=== PATIENT | male | born 1990 | race Two or more races ===

== ENCOUNTER 2019-03-27 23:25 | Emergency (ER) | payer MEDICAID ==
[~2019-03-27] VITALS: Ht 175.3 cm; Wt 63.5 kg
[~2019-03-27 23:25] MED LIST: ACYCLOVIR400 MG ORAL; ACYCLOVIR400 MG PO; NKM; POLYTRIM OP SOL10 ML OPHTHALM
[2019-03-27 23:40] VITALS: BP 132/86
--- NOTE | 2019-03-27 23:40 | NUR ---
ER Nurse Note: Pt BIBA from home d/t AMS after using meth. Per EMS, pt's brother called because pt was combative and acting out. Pt skin intact, no signs of trauma. Pt yelling and spitting at officers. Pt is not cooperating. ERMD at pt side; will continue to montior.
[2019-03-28] MEDS ORDERED: LORazepam Inj 2mg/ml 1ml IV ONE
[2019-03-28] MEDS ORDERED: Haloperidol 5mg/ml Inj IM ONE
[2019-03-28 00:48] LABS: BASOPHILS % (AUTO) 1.1 % (0.0-2.0); EOSINOPHILS % (AUTO) 0.3 % (0.0-3.0); HEMATOCRIT 44.1 % (42.0-52.0); HEMOGLOBIN 15.8 G/DL (14.2-18.0); LYMPHOCYTES % (AUTO) 9.7 % (20.0-45.0); MEAN CORPUSCULAR VOLUME 87 FL (80-99); MONOCYTES % (AUTO) 8.6 % (1.0-10.0); NEUTROPHILS % (AUTO) 80.4 % (45.0-75.0); PLATELET COUNT 285 K/UL (150-450); RED BLOOD COUNT 5.09 M/UL (4.70-6.10); RED CELL DISTRIBUTION WIDTH 10.8 % (11.6-14.8); WHITE BLOOD COUNT 14.1 K/UL (4.8-10.8)
[2019-03-28 00:59] LABS: ANION GAP 6 mmol/L (5-15); BLOOD UREA NITROGEN 15 mg/dL (7-18); CALCIUM 9.2 MG/DL (8.5-10.1); CARBON DIOXIDE 28 MMOL/L (21-32); CHLORIDE 103 MMOL/L (98-107); CREATININE 0.9 MG/DL (0.55-1.30); POTASSIUM 3.8 MMOL/L (3.5-5.1); SODIUM 137 MMOL/L (136-145)
[2019-03-28 01:03] LABS: ALANINE AMINOTRANSFERASE 21 U/L (12-78); ALBUMIN 4.5 G/DL (3.4-5.0); ALBUMIN/GLOBULIN RATIO 1.5 (1.0-2.7); ALKALINE PHOSPHATASE 72 U/L (46-116); ASPARTATE AMINO TRANSFERASE 26 U/L (15-37); BILIRUBIN,TOTAL 0.6 MG/DL (0.2-1.0)
--- NOTE | 2019-03-28 01:54 | Emergency Room Report ---
History of Present Illness General Chief Complaint: Substance Abuse Source: Patient, EMS, Law Enforcement Present Illness HPI Is a 29-year-old male with a history of methamphetamine abuse. He presents with chief complaint of altered mental status. Brother called 911 because patient was combative and acting abnormal. This is acute onset. Initially denies any drug abuse but later on told me that he used methamphetamine today. Patient was not cooperative. He was yelling and combative. No trauma. No suicidal thoughts or homicidal thought. Allergies: Coded Allergies: No Known Allergies (Unverified , 08/09/13) Patient History Past Medical History: see triage record, old chart reviewed Past Surgical History: none Pertinent Family History: none Social History: Reports: smoking, drug use Immunizations: other Reviewed Nursing Documentation: PMH: Agreed; PSxH: Agreed Nursing Documentation-PMH Past Medical History: No History, Except For Review of Systems Eye: Denies: eye pain, blurred vision ENT: Denies: ear pain, nose congestion, throat swelling Respiratory: Denies: cough, shortness of breath Cardiovascular: Denies: chest pain, palpitations Gastrointestinal: Denies: abdominal pain, diarrhea, nausea, vomiting Musculoskeletal: Denies: back pain, joint pain Skin: Denies: rash Neurological: Denies: headache, numbness Endocrine: Denies: increased thirst, increased urine Hematologic/Lymphatic: Denies: easy bruising All Other Systems: negative except mentioned in HPI Physical Exam Vital Signs Date Time Temp Pulse Resp B/P (MAP) Pulse Ox O2 Delivery O2 Flow Rate FiO2 03/27/19 23:26 98.4 110 18 99 Room Air vitals with tachycardia Sp02 EP Interpretation: reviewed, normal General Appearance: well appearing, no apparent distress, alert, other - Patient is aggressive and combative. Head: normocephalic, atraumatic Eyes: bilateral eye PERRL, bilateral eye EOMI ENT: hearing grossly normal, normal pharynx Neck: full range of motion, supple, no meningismus Respiratory: chest non-tender, lungs clear, normal breath sounds Cardiovascular #1: regular rate, rhythm, no murmur Gastrointestinal: normal bowel sounds, non tender, no mass, no organomegaly, no bruit, non-distended Musculoskeletal: back normal, gait/station normal, normal range of motion Psychiatric: other - Agitated Skin: warm/dry Medical Decision Making Diagnostic Impression: Primary Impression: Substance abuse Additional Impression: Psychosis Qualified Codes: F23 - Brief psychotic disorder ER Course Patient presents with acute agitation, psychosis secondary to drug abuse. He was given Haldol and Ativan and is calm and sleeping. No criteria for 5150 now. We'll discharge home in the morning. This patient is a chronic risk of self injury due to poor impulse control, limited coping skills, and judgment intermittently impaired by intoxication. I believe that the available clinical evidence to suggest that these characteristics derived primarily from personality disorder and are likely very stable over time. Hospitalization would likely attenuate risk of self-harm only during [facility] period, without lasting risk reduction. Serious self-harm , while possible, would likely be inadvertent, and because of impulsivity, and foreseeable. For these reasons, I do not believe hospitalization would provide meaningful reduction in risk of self-harm. Last Vital Signs Date Time Temp Pulse Resp B/P (MAP) Pulse Ox O2 Delivery O2 Flow Rate FiO2 03/27/19 23:26 98.4 110 18 99 Room Air Status: improved Disposition: HOME, SELF-CARE Condition: Improved Referrals: [facility],REFERRING (PCP) Patient Instructions: Substance Use Disorder Additional Instructions: Stop using drugs. Follow-up with rehabilitation within a week. Return if worse. Ruben Oden MD March 28, 2019 01:54
[2019-03-28 04:00] VITALS: BP 128/88
--- NOTE | 2019-03-28 04:06 | NUR ---
ER Nurse Note: All orders completed per ERMD orders. IV established; labs drawn and results completed. Urine collected, sent and results completed. All medications administered. Pt asleep, VSS, no signs of distress. All safety measures met; will continue to montior.
--- NOTE | 2019-03-28 06:16 | NUR ---
ER Nurse Note: Pt arousable, calm, no signs of distress, a&ox2. Called both phone numbers provided; unanswered. Will provided pt approate clothing, food, toileting. All safety measures met; will continue to montior.
[2019-03-28 06:28] VITALS: BP 147/82
[2019-03-28 09:04] VITALS: BP 138/85
--- NOTE | 2019-03-28 09:06 | NUR ---
ED Nurse Note: Pt arousable, calm, no signs of distress, a&ox2. pt very sleepy All safety measures met; will continue to montior.
--- NOTE | 2019-03-28 10:26 | NUR ---
ED Nurse Note: pt more awake alert ambulated to restroom with strong and steady gait. pt will be going home via taxi provided by hospital. spoke with pt's brother Real who states his mother is home and will let him in the house once he gets there. awaiting taxi voucher from nursing sup.
[2019-03-28 11:11] VITALS: BP 140/87
--- NOTE | 2019-03-28 11:14 | NUR ---
ED Nurse Note: taxi picked up pt. pt given voucher. SL removed pt given aci verbalized understanding ambulated out with strong and steady gait.
== END 2019-03-28 11:15 | disposition home or self-care (01) ==
LOC: EDBD 23:25 → EMR 23:45
DX: F19.10 Other psychoactive substance abuse, uncomplicated (principal); F23 Brief psychotic disorder; F17.200 Nicotine dependence, unspecified, uncomplicated
CPT/HCPCS: 36415; 80053; 80307; 80329; 85025; 96361; 96372; 96374; 99284; J1630

== ENCOUNTER 2020-11-25 01:35 | Emergency (ER) | payer MEDICAID ==
[~2020-11-25] VITALS: Ht 175.3 cm; Wt 65.8 kg
[2020-11-25 01:57] VITALS: BP 120/70
[2020-11-25 01:58] VITALS: BP 120/70
--- NOTE | 2020-11-25 01:58 | Emergency Room Report ---
History of Present Illness General Chief Complaint: General Complaint Source: Patient Present Illness HPI This is a 30-year-old male with no past medical history but does have a history of methamphetamine abuse. He presents with growth on his gumline. This been there for about a year. He was concerned that it may be getting bigger. No trauma. No pain. No drainage. Has not seen a doctor for this. Denies any other complaint. Allergies: Coded Allergies: No Known Allergies (Unverified , 08/09/13) COVID-19 Screening Contact w/high risk pt: No Experienced COVID-19 symptoms?: No COVID-19 Testing performed [employer]: No Patient History Past Medical History: see triage record, old chart reviewed Past Surgical History: none Pertinent Family History: none Social History: Reports: drug use Immunizations: other Reviewed Nursing Documentation: PMH: Agreed; PSxH: Agreed Nursing Documentation-PMH Past Medical History: No Stated History Review of Systems Eye: Denies: eye pain, blurred vision ENT: Denies: ear pain, nose congestion, throat swelling Respiratory: Denies: cough, shortness of breath Cardiovascular: Denies: chest pain, palpitations Gastrointestinal: Denies: abdominal pain, diarrhea, nausea, vomiting Musculoskeletal: Denies: back pain, joint pain Skin: Denies: rash Neurological: Denies: headache, numbness Endocrine: Denies: increased thirst, increased urine Hematologic/Lymphatic: Denies: easy bruising All Other Systems: negative except mentioned in HPI Physical Exam Vital Signs Date Time Temp Pulse Resp B/P (MAP) Pulse Ox O2 Delivery O2 Flow Rate FiO2 11/25/20 01:49 98.1 90 18 120/70 (87) 98 Room Air Vitals normal Sp02 EP Interpretation: reviewed, normal General Appearance: well appearing, no apparent distress, alert Head: normocephalic, atraumatic Eyes: bilateral eye PERRL, bilateral eye EOMI ENT: hearing grossly normal, normal pharynx, other - oral pharynx: There is a small 1 cm bony growth on the inner aspect of the lower mandible just left of midline. No abscess. 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 No evidence of cancerous growth based on exam. No evidence of infection. Told patient to follow-up with primary care doctor for referral to see a oromaxillary surgeon. Last Vital Signs Date Time Temp Pulse Resp B/P (MAP) Pulse Ox O2 Delivery O2 Flow Rate FiO2 11/25/20 01:54 90 18 Room Air 11/25/20 01:49 98.1 120/70 (87) 98 Status: unchanged Disposition: HOME, SELF-CARE Condition: Stable Additional Instructions: Follow-up with your doctor in 1 to 2 weeks. If it continues to grow, you may need referral to see an oral maxillary surgeon. Return if symptoms worsen. Ruben Oden MD Nov 25, 2020 01:58
--- NOTE | 2020-11-25 01:59 | NUR ---
came to er complaints of fredi in the left side gum x 1yr but patient feels like it is growing
--- NOTE | 2020-11-25 02:04 | NUR ---
discharged home with instruction to follow up with pmd
== END 2020-11-25 02:00 | disposition home or self-care (01) ==
LOC: EMR 01:59
DX: M27.0 Developmental disorders of jaws (principal); F15.90 Other stimulant use, unspecified, uncomplicated
CPT/HCPCS: 99281